=== PATIENT | female | born 1995 | race African-American/Black ===

== ENCOUNTER 2020-10-03 07:16 | Emergency (ER) | payer OTHER ==
[2020-10-03 07:40] VITALS: BP 120/79; PULSE 84; TEMP 98.6; BMI 31.8
[2020-10-03] MEDS ORDERED: DIPHTH,PERTUSS(ACELL),TET 0.5 ML DISP.SYRIN IM ONE (07:59)
[2020-10-03] MEDS ORDERED: SODIUM CHLORIDE 0.9% 1000 ML INFUS.BAG IV ONE (08:00)
[2020-10-03] MEDS ORDERED: LIDOCAINE HCL 1%, 10 MG/ML (50 mL VIAL) SQ ONE (10:25)
[2020-10-03] MEDS ORDERED: LIDOCAINE HCL 1%, 10 MG/ML (20ML VIAL) ONE (10:27)
== END 2020-10-03 12:56 | disposition home or self-care (01) ==
LOC: JER 07:16
PROC: 0HQHXZZ Repair Right Upper Leg Skin, External Approach (ICD-10-PCS; principal; 2020-10-03)
PROC: 0HQ5XZZ Repair Chest Skin, External Approach (ICD-10-PCS; 2020-10-03)
PROC: 0HQFXZZ Repair Right Hand Skin, External Approach (ICD-10-PCS; 2020-10-03)
PROC: 3E0234Z Introduction of Serum, Toxoid and Vaccine into Muscle, Percutaneous Approach (ICD-10-PCS; 2020-10-03)
DX: S61.312A Laceration without foreign body of right middle finger with damage to nail, initial encounter (principal); S21.112A Laceration without foreign body of left front wall of thorax without penetration into thoracic cavity, initial encounter; S71.111A Laceration without foreign body, right thigh, initial encounter
CPT/HCPCS: 71260-TC; 90715; 99285-25; Q9967

== ENCOUNTER 2020-10-17 20:41 | Emergency (ER) | payer SELFPAY ==
[2020-10-17 21:02] VITALS: BP 107/69; PULSE 78; TEMP 98; BMI 28.1
== END 2020-10-17 22:37 | disposition home or self-care (01) ==
LOC: JERFT 20:41
DX: Z48.02 Encounter for removal of sutures (principal)
CPT/HCPCS: 99281-25